=== PATIENT | female | born 1985 | race Caucasian/White ===

== ENCOUNTER 2017-04-04 11:21 | Outpatient (CLI) | payer OTHER ==
[2017-04-04 20:15] LABS: ALBUMIN/GLOBULIN RATIO 1.6 (1.0-2.2); BILIRUBIN,TOTAL 0.5 mg/dL (0.2-1.0); BUN - BLOOD UREA NITROGEN 10 mg/dL (6-20); CALCIUM 9.3 mg/dL (8.5-10.3); CARBON DIOXIDE - CO2 26 mmol/L (21-32); CHLORIDE 105 mmol/L (101-111); CHOL/HDL RATIO 2.7 (<4.4); CHOLESTEROL 169 mg/dL; CREATININE 0.8 mg/dL (0.4-1.0); GFR - MDRD 83 (>89); GLUCOSE 95 mg/dL (70-100); HDL CHOLESTEROL 62 mg/dL; LDL/HDL RATIO 1.6 (<4.4); POTASSIUM 3.9 mmol/L (3.5-5.0); SODIUM 139 mmol/L (135-145); TOTAL PROTEIN 7.4 g/dL (6.7-8.2); TRIGLYCERIDES 45 mg/dL; VLDL CHOLESTEROL 9 mg/dL
== END 2017-04-04 11:22 | disposition home or self-care (01) ==
LOC: LAB.F 11:21
PROVIDERS: ATTEND Specialist
DX: E78.1 Pure hyperglyceridemia (principal)
CPT/HCPCS: 36415; 80053; 80061

== ENCOUNTER 2020-12-08 13:28 | Outpatient (CLI) | payer OTHER | END 2020-12-08 13:29 | disposition home or self-care (01) | LOC: COV 13:28 | PROVIDERS: ATTEND Naturopath | DX: U07.1 COVID-19 (principal); Z20.822 Contact with and (suspected) exposure to COVID-19 ==

== ENCOUNTER 2023-01-21 07:00 | Outpatient (CLI) | payer OTHER ==
--- NOTE | 2023-01-21 13:43 | XRAY Report ---
PROCEDURE: Knee 3 View RT INDICATIONS: INTERNAL DERANGEMENT OF RIGHT KNEE TECHNIQUE: 3 views of the right knee(s) were acquired. COMPARISON: None. FINDINGS: Bones: No fractures or dislocations. No suspicious bony lesions. Definite osteophytes and possibl e narrowing of joint space. These changes affect the patellofemoral and medial tibiofemoral compartme nts. Soft tissues: Mild knee joint effusion. No suspicious soft tissue calcifications. IMPRESSION: No acute bony abnormality. If there remains a high clinical concern for fracture, consider cross-sect ional imaging now. If pain persists, consider repeat x-ray in 10-14 days or cross-sectional imaging. Bicompartmental Kellgren-Honorio scale of osteoarthritis: Grade 1-2: mild osteoarthritis. Reviewed by: Wade Tom MD on 01/21/2023 1:42 PM PDT Approved by: Wade Tom MD on 01/21/2023 1:42 PM PDT Station ID: [id number]
== END 2023-01-21 23:59 | disposition home or self-care (01) ==
LOC: DI.S 07:00
PROVIDERS: ATTEND Physician Assistant
DX: M23.91 Unspecified internal derangement of right knee (principal); M17.11 Unilateral primary osteoarthritis, right knee

== ENCOUNTER 2024-02-17 09:08 | Emergency (ER) | payer OTHER ==
[2024-02-17 10:01] LABS: BASOPHILS % (AUTO) 0.1 %; EOSINOPHILS % (AUTO) 0.1 %; HCT - HEMATOCRIT 38.8 % (37.0-47.0); LYMPHOCYTES # (AUTO) 0.4 10^3/uL (1.5-3.5); LYMPHOCYTES % (AUTO) 3.7 %; MEAN CORPUSCULAR HEMOGLOBIN 26.3 pg (27.0-31.0); MEAN CORPUSCULAR HGB CONC 30.9 g/dL (32.0-36.0); MEAN CORPUSCULAR VOLUME 84.9 fL (81.0-99.0); MEAN PLATELET VOLUME 9.7 fL (7.9-10.8); MONOCYTES # (AUTO) 0.2 10^3/uL (0.0-1.0); MONOCYTES % (AUTO) 2.5 %; NEUTROPHILS # (AUTO) 9.1 10^3/uL (1.5-6.6); NEUTROPHILS % (AUTO) 93.2 %; PLT - PLATELET COUNT 272 10^3/uL (130-450); RED BLOOD COUNT 4.57 10^6/uL (4.20-5.40); RED CELL DISTRIBUTION WIDTH 14.3 % (12.0-15.0); WHITE BLOOD COUNT 9.8 x10^3/uL (4.8-10.8)
[2024-02-17] MEDS: ONDANSETRON ODT 4 MG TABLET TL STA (10:07)
[2024-02-17 10:18] LABS: ALBUMIN 4.7 g/dL (3.2-5.5); ALBUMIN/GLOBULIN RATIO 1.5 (1.0-2.2); ALKALINE PHOSPHATASE 55 IU/L (42-121); ALT ALANINE AMINOTRANSFERASE 26 IU/L (10-60); AST ASPARTATE AMINOTRANSFERASE 18 IU/L (10-42); BILIRUBIN,TOTAL 0.4 mg/dL (0.2-1.0); BUN - BLOOD UREA NITROGEN 13 mg/dL (6-20); CALCIUM 9.6 mg/dL (8.5-10.3); CARBON DIOXIDE - CO2 27 mmol/L (21-32); CHLORIDE 103 mmol/L (101-111); CREATININE 0.8 mg/dL (0.6-1.3); GFR - MDRD 80 (>89); GLUCOSE 128 mg/dL (74-104); POTASSIUM 3.9 mmol/L (3.5-4.5); SODIUM 139 mmol/L (135-145); TOTAL PROTEIN 7.8 g/dL (6.4-8.9)
[2024-02-17 10:19] LABS: LIPASE < 10 U/L (11-82)
[2024-02-17 12:37] LABS: BILIRUBIN,URINE NEGATIVE (NEGATIVE); GLUCOSE, URINE (UA) NEGATIVE (NEGATIVE); KETONES,URINE (UA) NEGATIVE (NEGATIVE); LEUKOCYTE ESTERASE, URINE NEGATIVE (NEGATIVE); NITRITE,URINE NEGATIVE (NEGATIVE); OCCULT BLOOD,URINE MODERATE (NEGATIVE); PROTEIN,URINE 30 mg/dL (NEGATIVE); UROBILINOGEN,URINE 0.2 (NORMAL) E.U./dL (NORMAL)
[2024-02-17 12:39] LABS: CLARITY,URINE CLEAR (CLEAR)
[2024-02-17 12:40] LABS: HCG UR QUAL NEGATIVE
[2024-02-17 12:46] LABS: BACTERIA,URINE Few /HPF (None Seen); SQUAMOUS EPITHELIAL CELL,UR MOD Squamous (<= Few); WBC,URINE 0-3 /HPF (0-5)
--- NOTE | 2024-02-17 12:57 | ED Physician Documentation ---
History of Present Illness - Stated complaint Stated Complaint: VOMITING,GI - Chief complaint Chief Complaint: Abd Pain - Additonal information Additional information: 39-year-old female presents emergency department for multiple complaints. She has no pertinent past medical history aside from uterine fibroids and ovarian cyst. Patient says that for the last month now she has been having some intermittent vaginal spotting, she had her period about a week or so ago and did notice after that the vaginal spotting had significantly subsided but last night started experiencing generalized malaise, fevers, chills, nausea vomiting. After multiple episodes of emesis overnight patient reports that she started to have some mild vaginal bleeding again. She denies any dizziness, low-grade fever at around 100. 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: Other - Present Medications Home Medications: Ambulatory Orders Medication Instructions Recorded Confirmed ALPRAZolam [Xanax] 0.5 mg PO PRN 07/30/17 Famotidine [Pepcid] 20 mg PO BID #60 tablet 07/30/17 Hydrocodone/Acetaminophen 1 - 2 each PO Q6H PRN #10 tablet 07/30/17 [Hydrocodon-Acetaminophen 5-325] Omeprazole [PriLOSEC] 20 mg PO DAILY #30 capsule 07/30/17 Sucralfate [Carafate] 1 gm PO ACHS #60 tablet 07/30/17 Ondansetron Odt [Zofran Odt] 4 mg TL Q6H PRN #10 tablet 02/17/24 - Allergies Allergies/Adverse Reactions: Allergies Allergy/AdvReac Type Severity Reaction Status Date / Time No Known Drug Allergies Allergy Verified 02/17/24 09:47 - Social History Does the pt smoke?: No Smoking Status: Never smoker Does the pt drink ETOH?: Yes Does the pt have substance abuse?: No PD ED PE NORMAL - Vitals Vital signs reviewed: Yes - General General: Alert and oriented X 3, No acute distress, Well developed/nourished - HEENT HEENT: Atraumatic, PERRL - Neck Neck: Supple, no meningeal sign - Cardiac Cardiac: RRR, No murmur, No gallop, Strong equal pulses - Respiratory Respiratory: No respiratory distress, Clear bilaterally - Abdomen Abdomen: Normal bowel sounds, Soft, Non tender, No organomegaly - Back Back: No CVA TTP - Derm Derm: Normal color, Warm and dry, No rash - Psych Psych: Other (Anxious) Results - Vitals Vitals: Vital Signs - 24 hr 02/17/24 02/17/24 02/17/24 09:43 13:46 14:14 Temperature 36.5 C Heart Rate 70 65 86 Respiratory 16 20 18 Rate Blood Pressure 137/83 H 123/73 144/74 H O2 Saturation 99 100 100 02/17/24 14:16 Temperature Heart Rate 68 Respiratory 18 Rate Blood Pressure O2 Saturation 100 Oxygen O2 Source Room air - Labs Labs: Laboratory Tests 02/17/24 02/17/24 02/17/24 09:58 09:58 12:24 WBC 9.8 RBC 4.57 Hgb 12.0 Hct 38.8 MCV 84.9 MCH 26.3 L MCHC 30.9 L RDW 14.3 Plt Count 272 MPV 9.7 Neut # (Auto) 9.1 H Lymph # (Auto) 0.4 L Morton # (Auto) 0.2 Eos # (Auto) 0.0 Baso # (Auto) 0.0 Absolute Nucleated RBC 0.00 Nucleated RBC % 0.0 Sodium 139 Potassium 3.9 Chloride 103 Carbon Dioxide 27 Anion Gap 9.0 BUN 13 Creatinine 0.8 Estimated GFR (MDRD) 80 L Glucose 128 H Calcium 9.6 Total Bilirubin 0.4 AST 18 ALT 26 Alkaline Phosphatase 55 Total Protein 7.8 Albumin 4.7 Globulin 3.1 Albumin/Globulin Ratio 1.5 Lipase < 10 L Urine Color YELLOW Urine Clarity CLEAR Urine pH 7.0 Ur Specific [place] 1.020 Urine Protein 30 H Urine Glucose (UA) NEGATIVE Urine Ketones NEGATIVE Urine Occult Blood MODERATE H Urine Nitrite NEGATIVE Urine Bilirubin NEGATIVE Urine Urobilinogen 0.2 (NORMAL) Ur Leukocyte Esterase NEGATIVE Urine RBC 6-10 H Urine WBC 0-3 Ur Squamous Epith Cells MOD Squamous H Urine Bacteria Few Ur Microscopic Review INDICATED Urine Culture Comments NOT INDICATED Urine HCG, Qual Nasal Adenovirus (PCR) Nasal B. parapertussis DNA (PCR) Nasal Coronavir 229E PCR Nasal Coronavir HKU1 PCR Nasal Coronavir NL63 PCR Nasal Coronavir OC43 PCR Nasal Enterovir/Rhinovir PCR Nasal Influenza B PCR Nasal Influenza A PCR Nasal Parainfluen 1 PCR Nasal Parainfluen 2 PCR Nasal Parainfluen 3 PCR Nasal Parainfluen 4 PCR Nasal RSV (PCR) Nasal B.pertussis DNA PCR Nasal C.pneumoniae (PCR) Narciso Human Metapneumo PCR Nasal M.pneumoniae (PCR) Nasal SARS-CoV-2 (PCR) 02/17/24 02/17/24 12:24 13:37 WBC RBC Hgb Hct MCV MCH MCHC RDW Plt Count MPV Neut # (Auto) Lymph # (Auto) Morton # (Auto) Eos # (Auto) Baso # (Auto) Absolute Nucleated RBC Nucleated RBC % Sodium Potassium Chloride Carbon Dioxide Anion Gap BUN Creatinine Estimated GFR (MDRD) Glucose Calcium Total Bilirubin AST ALT Alkaline Phosphatase Total Protein Albumin Globulin Albumin/Globulin Ratio Lipase Urine Color Urine Clarity Urine pH Ur Specific [place] Urine Protein Urine Glucose (UA) Urine Ketones Urine Occult Blood Urine Nitrite Urine Bilirubin Urine Urobilinogen Ur Leukocyte Esterase Urine RBC Urine WBC Ur Squamous Epith Cells Urine Bacteria Ur Microscopic Review Urine Culture Comments Urine HCG, Qual NEGATIVE Nasal Adenovirus (PCR) NOT DETECTED Nasal B. parapertussis DNA (PCR) NOT DETECTED Nasal Coronavir 229E PCR NOT DETECTED Nasal Coronavir HKU1 PCR NOT DETECTED Nasal Coronavir NL63 PCR NOT DETECTED Nasal Coronavir OC43 PCR NOT DETECTED Nasal Enterovir/Rhinovir PCR NOT DETECTED Nasal Influenza B PCR NOT DETECTED Nasal Influenza A PCR NOT DETECTED Nasal Parainfluen 1 PCR NOT DETECTED Nasal Parainfluen 2 PCR NOT DETECTED Nasal Parainfluen 3 PCR NOT DETECTED Nasal Parainfluen 4 PCR NOT DETECTED Nasal RSV (PCR) NOT DETECTED Nasal B.pertussis DNA PCR NOT DETECTED Nasal C.pneumoniae (PCR) NOT DETECTED Narciso Human Metapneumo PCR DETECTED A Nasal M.pneumoniae (PCR) NOT DETECTED Nasal SARS-CoV-2 (PCR) NOT DETECTED PD Medical Decision Making - ED course ED course: 39-year-old female presents emergency department for nausea vomiting and vaginal bleeding. I do not believe that the vaginal bleeding is related to the nausea and vomiting given that the vaginal bleeding has actually subsided and then just restarted when patient started to feel ill again last night. Labs are complete no leukocytosis normal electrolytes no anemia. Urinalysis does not show any UTI symptoms no leukocytes no nitrites. A respiratory swab was also complete for further evaluation and she test positive for human metapneumovirus. I believe that she is experiencing the nausea vomiting due to the symptoms. She was given a liter of IV fluids here in the ER as well as some Zofran to help with her nausea and did report some improvement in her symptoms. In regards to the scant and intermittent vaginal bleeding that patient has been having she was told to follow-up with her primary care provider for outpatient imaging for further evaluation as I do not believe that patient is experiencing an ovarian torsion, ectopic , or any other emergent reasons for scant vaginal bleeding at this time. Patient is agreeable to this plan all questions answered safe for discharge. Departure - Departure Disposition: 01 Home, Self Care Clinical Impression: Vaginal spotting Nausea & vomiting Qualifiers: Vomiting type: unspecified Qualified Code(s): R11.2 - Nausea with vomiting, unspecified Instructions: Dehydration Prescriptions: Ondansetron Odt [Zofran Odt] 4 mg TL Q6H PRN #10 tablet PRN Reason: Nausea / Vomiting Comments: Thank you so much for trusting us with your care. At this point in time I believe that you are experiencing nausea vomiting due to some sort of virus. I do not believe this is related to your vaginal spotting. Please help with your primary care provider for outpatient imaging such as vaginal pelvic ultrasound for further investigation as to why this has been happening. Please come back to the ER if you are starting develop any severe abdominal pain pelvic pain worsening vaginal bleeding or any other concerning emergent symptoms. Forms: PCP List Discharge Date/Time: 02/17/24 14:18
[2024-02-17] MEDS: SODIUM CHLORIDE 0.9% 1,000 ML IV ONE (13:11)
[2024-02-17 14:19] LABS: CORONAVIRUS 229E-RESP PCR NOT DETECTED; CORONAVIRUS HKU1-RESP PCR NOT DETECTED; CORONAVIRUS NL63-RESP PCR NOT DETECTED; CORONAVIRUS OC43-RESP PCR NOT DETECTED; HUMAN METAPNEUMOVIRUS DETECTED; INFLUENZA A- RESP PCR PANEL NOT DETECTED; RHINOVIRUS/ENTEROVIRUS NOT DETECTED; SARS-CoV-2 -RESP PCR PANEL NOT DETECTED
[2024-02-17 14:20] LABS: B. PARAPERTUSSIS- RESP PCR PAN NOT DETECTED; B. PERTUSSIS- RESP PCR PANEL NOT DETECTED; C. PNEUMONIAE- RESP PCR PANEL NOT DETECTED; INFLUENZA B - RESP PCR PANEL NOT DETECTED; M. PNEUMONIAE- RESP PCR PANEL NOT DETECTED; PARAINFLUENZA VIRUS 1 NOT DETECTED; PARAINFLUENZA VIRUS 2 NOT DETECTED; PARAINFLUENZA VIRUS 3 NOT DETECTED; PARAINFLUENZA VIRUS 4 NOT DETECTED; RSV- RESP PCR PANEL NOT DETECTED
[2024-02-17 14:21] VITALS: BP 144/74; O2SAT 100
== END 2024-02-17 14:18 | disposition home or self-care (01) ==
LOC: ED 09:08
DX: R11.2 Nausea with vomiting, unspecified (principal); B97.81 Human metapneumovirus as the cause of diseases classified elsewhere; N93.9 Abnormal uterine and vaginal bleeding, unspecified
CPT/HCPCS: 36415; 80053; 81001; 81025; 83690; 85025; 87633; 99283; 99284; Q0162; 81003; 87086